=== PATIENT | female | born 1985 | race Caucasian/White ===

== ENCOUNTER 2018-08-30 15:33 | Emergency (ER) | payer OTHER ==
[~2018-08-30] VITALS: Ht 170.2 cm; Wt 78.0 kg
--- NOTE | 2018-08-30 15:46 | NUR ---
pt RIA ariza, reports that she had just donated blood and she was walking home when she suddenly felt faint, lost conciousness and states she doesnt remember what happened after that. She woke up and ems was on scene. pt states she has never experienced syncopal episode before. per ems, her blood pressure was so low, it was not readable. after 1000ml ivf, her bp was 110/90. pt A+Ox4, bp 104/65 upon arrival to ED room. pt states she feels a lot better after ivf. All monitors applied. VSS. call light with in reach.
--- NOTE | 2018-08-30 15:54 | NUR ---
lab at bedside
[2018-08-30 16:06] LABS: BASOPHILS # (AUTO) 0.02 x10^3/uL (0-0.1); BASOPHILS % (AUTO) 0 % (0-1); EOSINOPHILS # (AUTO) 0.05 x10^3/uL (0-0.4); EOSINOPHILS % (AUTO) 0 % (1-7); LYMPHOCYTES % (AUTO) 18 % (22-44); MD NO; MEAN CORPUSCULAR HEMOGLOBIN 29.1 pg (27.0-34.8); MEAN CORPUSCULAR HGB CONC 32.5 g/dL (32.4-35.8); MEAN CORPUSCULAR VOLUME 89.5 fL (80-100); MONOCYTES # (AUTO) 0.39 x10^3/uL (0.2-0.8); MONOCYTES % (AUTO) 4 % (2-9); NEUTROPHILS # (AUTO) 8.68 x10^3/uL (1.8-6.8); NEUTROPHILS % (AUTO) 78 % (42-75); PLATELET COUNT 186 x10^3/uL (130-400); RED BLOOD COUNT 5.58 x10^6/uL (3.82-5.3); RED CELL DISTRIBUTION WIDTH 14.4 % (9.6-15.2)
[2018-08-30 16:12] VITALS: BP 97/62
[2018-08-30 16:14] LABS: INTERNATIONAL NORMALIZED RATIO 1.05 (0.93-1.1)
[2018-08-30 16:16] LABS: ALANINE AMINOTRANSFERASE 16 U/L (12-78); ALBUMIN 3.2 g/dL (3.4-5.0); ANION GAP 4 mmol/L (5-15); CALCIUM 7.5 mg/dL (8.5-10.1); CHLORIDE 111 mmol/L (98-107); CREATININE 0.91 mg/dL (0.55-1.02)
--- NOTE | 2018-08-30 16:16 | NUR ---
PT REQUESTING TO GO HOME, STATES FEELING BETTER, KIDS AT HOME AND WOULD LIKE TO LEAVE [place]. PT REFUSING UA, NOT WANTING TO WAIT FOR RESULTS. UPDATED. VSS. PT GIVEN JUICE AND CRACKERS PER REQUEST. AWAITING DC PAPERS AT THIS TIME
[2018-08-30 16:18] LABS: ALKALINE PHOSPHATASE 66 U/L (45-117); BILIRUBIN,TOTAL 0.3 mg/dL (0.2-1.0); TOTAL PROTEIN 6.1 g/dL (6.4-8.2)
== END 2018-08-30 16:48 | disposition home or self-care (01) ==
LOC: ED 16:42
DX: R55 Syncope and collapse (principal); R42 Dizziness and giddiness
CPT/HCPCS: 36415; 71045; 80053; 85025; 85610; 93005; 99284